=== PATIENT | female | born 1970 ===

== ENCOUNTER 2022-07-13 07:45 | Outpatient (REF) | payer SELFPAY ==
--- NOTE | ~2022-07-13 | XR_ITS ---
EXAMINATION: XR HIP, RIGHT CLINICAL INFORMATION: Pain. COMPARISON: None TECHNIQUE: AP and frog-leg lateral views of the right hip are submitted, together with a frontal view of the pelvis. FINDINGS: Bony alignment and mineralization are normal. There is moderately severe narrowing of the right acetabular joint space, with subchondral sclerosis of the right acetabular roof. The left hip shows no unusual degenerative change. The femoral heads appear smooth. The sacroiliac joints are symmetric and unremarkable. The pubic symphysis is intact. No fracture or dislocation is seen. Question sacralization of the L5 transverse processes, in particular on the right. No foreign body is noted. XR/XR hip RT w PEL1V IMPRESSION: There is moderately severe osteoarthritic change of the right hip. No fracture or dislocation is seen.
== END 2022-07-13 07:46 | disposition home or self-care (01) ==
LOC: HO.HOSX 07:45
PROVIDERS: Visit Provider Physician Assistant
DX: M16.11 Unilateral primary osteoarthritis, right hip (principal); Z79.899 Other long term (current) drug therapy
CPT/HCPCS: 73502

== ENCOUNTER 2022-10-04 08:00 | Outpatient (RCR) | payer OTHER, SELFPAY | END 2023-07-16 12:11 | disposition home or self-care (01) | LOC: HO.PTWFD 08:00 | PROVIDERS: PCP Internal Medicine; Visit Provider Physician Assistant | DX: M16.11 Unilateral primary osteoarthritis, right hip (principal) | CPT/HCPCS: 97110; 97116; 97140; 97162; 97535 ==

== ENCOUNTER 2023-01-31 13:38 | Outpatient (AMB) | payer OTHER, SELFPAY ==
--- NOTE | 2023-01-31 13:50 | MHC.OFFVIS ---
Intake Intake Visit Reasons: OV- Right Hip pain w/ xrays Intake Note: Leigh is a 52 year old women who presents today for a follow up of her right hip with complaints hip pain. Patient reports that she was doing physical therapy and felt some mild relief until she stopped attending. Once she stopped attending she felt and intermittent increase in her pain. Has seen a chiropractor but has not seen any significant changes. Increased pain walking up hills. Allergies morphine Allergy (Verified 01/31/23 13:53) itchy HPI OV- Right Hip pain w/ xrays HPI Details Leigh Teran is a 52-year-old female who presented today to the office for a follow-up of right hip pain with an x-ray result. The patient is post-bilateral mastectomy, and later she developed pain in the back, so she visited a chiropractor. The chiropractor pulled her leg in such a way that she developed hip pain, which resolved on its own. She went to [place] for vacation, and while surfing, she was unable to rotate on the surf board. Later, she went hiking and exerted herself, and the pain went away on its own. She reports hip pain that radiates to her inguinal region. She currently describes her pain as intermittent in nature, coming and going with certain activities. The patient reports pain when climbing up and down hills for a few days. She tried physical therapy and massages in the past with minimal benefits. 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 She has had previous caesarean sections. 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 07/13/22: XR HIP, RIGHT FINDINGS: Bony alignment and mineralization are normal. There is moderately severe narrowing of the right acetabular joint space, with subchondral sclerosis of the right acetabular roof. The left hip shows no unusual degenerative change. The femoral heads appear smooth. The sacroiliac joints are symmetric and unremarkable. The pubic symphysis is intact. No fracture or dislocation is seen. Question sacralization of the L5 transverse processes, in particular on the right. No foreign body is noted. IMPRESSION: There is moderately severe osteoarthritic change of the right hip. No fracture or dislocation is seen. Assessment & Plan Assessment & Plan (1) Osteoarthritis of right hip: Code(s): M16.11 - Unilateral primary osteoarthritis, right hip Plan: This is a healthy and active 52 yo F iwth right hip OA 2/2 mild dysplasia. We discussed her diagnosis and treatment option including strengthening, injections and arthroplasty. She will likely need arthroplasty but is not ready for such measures at this time. She can return as needed. Plan Scribed for Dr. Terrance Soni by Dwayne Sin, medical sales representative, on 01/31/2023. I, Dr. Terrance Soni, have personally reviewed and agree with the information entered by the scribe. Coding Level of Care Code New Pt Level 4 (52981) Diagnoses Osteoarthritis of right hip M16.11
== END 2023-01-31 14:18 | disposition home or self-care (01) ==
PROVIDERS: PCP Internal Medicine; Visit Provider Orthopaedic Surgery
DX: M16.11 Unilateral primary osteoarthritis, right hip (principal)
CPT/HCPCS: 99214

== ENCOUNTER → 2023-01-31 13:38 | Outpatient (BNVA) | payer OTHER, SELFPAY | PROVIDERS: PCP Internal Medicine; Visit Provider Orthopaedic Surgery ==

== ENCOUNTER 2023-02-04 12:26 | Outpatient (REF) | payer OTHER, SELFPAY | END 2023-02-04 12:27 | disposition home or self-care (01) | LOC: HO.HOSX 12:26 | PROVIDERS: Visit Provider Orthopaedic Surgery | DX: Z13.89 Encounter for screening for other disorder (principal) ==

== ENCOUNTER 2023-10-11 11:09 | Outpatient (AMB) | payer OTHER, SELFPAY ==
--- NOTE | 2023-10-11 09:50 | A.OFFPC_ITS ---
Vital Signs 10/11/23 11:19 Height 5 ft 2 in Weight 138 lb 6 oz BMI 25.3 BP 98/76 Blood Pressure Location Lt brachial Position Sitting Respiration 14 Pulse 80 Pulse Source Pulse Oximeter Temp 98.5 F Temp Source Oral Pulse Oximetry (%) 99 Oxygen Delivery Method Room Air Intake Visit Reasons: est care Intake Note: New patient visit. Possible fluid in left ear. Account Service Associate Required: No Allergies morphine Allergy (Verified 10/11/23 11:23) itchy Medication List - Last Reviewed 10/11/23 by Kaylynn Chapin CMA liothyronine 10 mcg PO DAILY thyroid (pork) (Quinter Thyroid) 30 mg PO DAILY thyroid (pork) (Quinter Thyroid) 15 mg PO DAILY Dental Screening Dental Screen Date: 10/11/23 Did you have a dental visit in the last 12 months?: No Did you have a dental problem in the last 6 months where you did not have access to dental care?: No Was dental information given to patient?: No (Patient will look for Dentist.) HPI HPI Comments History of Present Illness Details The patient is a 52-year-old female with a past medical history of low back pain, right hip pain, b/l mastectomy, hypothyroid presenting to reestablish care The patient is post-bilateral mastectomy 03/2021. Needs MRI 2025. She has atypical cells. She had [address] Kee (onc). MSK: Low back pain, hip pain. Has seen chiro for her back. Saw ortho for hip mod-severe arthritis. Doing well History of thyroid u/s. didnt hear results. Taken at [facility]. She will provide Colonoscopy 12/2022-GI Dr Manzanares [facility] Medical History (Updated 10/11/23 @ 13:26 by Bonnie Menjivar MD) Hypothyroidism Surgical History (Updated 10/11/23 @ 11:34 by Bonnie Menjivar MD) H/O bilateral mastectomy Hx of colonoscopy Hx of adenoidectomy Hx of wisdom tooth extraction Hx of section Hx of mastectomy Family History (Updated 10/11/23 @ 11:23 by Kaylynn Chapin CMA) Sister Substance use Alcoholism Social History Housing: House Patient Tobacco Use Status: Former Tobacco user Tobacco use type: Cigarette e-Cigarette/Vaping Use: Never Used service: No Current occupational status: other 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 1. Little interest or pleasure in doing things: not at all 2. Feeling down, depressed, or hopeless: not at all 3. Trouble falling or staying asleep, or sleeping too much: not at all 4. Feeling tired or having little energy: not at all 5. Poor appetite or overeating: not at all 6. Feeling bad about yourself - or that you are a failure or have let yourself or your family down: not at all 7. Trouble concentrating on things, such as reading the newspaper or watching television: not at all 8. Moving or speaking so slowly that other people could have noticed. Or the opposite - being so fidgety or restless that you have been moving around a lot more than usual: not at all 9. Thoughts that you would be better off or of hurting yourself in some way: not at all Total score: 0 Depression Screening Interpretation: Negative (neg) Depression Screening Done: Yes 22966 - PHQ-9 Billing: Yes Source: Developed by Drs. Huan Espinosa, Sumi Winchester, Charanjit Bunn and colleagues, with an educational jareth from [employer]. Thrive Questionnaire Date Thrive assessed: 10/11/23 I am a: Patient What is your living situation today?: I have a steady place to live Within the past 12 months, did the food you bought not last and you didn't have the money to get more?: Never true Within the past 12 months, did you worry whether your food would run out before you got money to buy more?: Never true Do you have trouble paying for medicines?: No Do you have trouble getting transportation to medical appointments?: No Do you have trouble paying your heating and electricity bill?: No Do you have trouble taking care of your child, family member or friend?: No Do you have trouble with day-to-day activities such as bathing, preparing meals, shopping, managing finances, etc.?: No Are you currently unemployed and looking for a job?: No Are you interested in more education?: No Please select the resources that you would like help with: None Currently or been in a relationship where the following occur: no concerns reported THRIVE Score: 0 AUDIT C Alcohol Use Questionnaire (AUDIT-C) 1. How often do you have a drink containing alcohol?: Never 3. How often do you have six or more drinks on one occasion?: Never Total Score: 0 BEST-7 AMB Questionnaire BEST-7 Date BEST - 7 assessed: 10/11/23 Feeling nervous, anxious, or on edge: 0 = Not at all Not being able to stop or control worryin = Not at all Worrying too much about different things: 0 = Not at all Trouble relaxin = Not at all Being so restless that it is hard to sit still: 0 = Not at all Becoming easily annoyed or irritable: 0 = Not at all Feeling afraid as if something awful might happen: 0 = Not at all Total BEST-7 score (0-4 normal; 5-9 mild; 10-14 moderate; 15-21 severe): 0 Source: Developed by Drs. Huan Espinosa, Sumi Winchester, Charanjit Bunn and colleagues, with an educational jareth from [employer]. BEST-7 Assessment Billing BEST-7 Assessment Tool: BEST-7 Assessment 45906 Review of Systems Const Details: ROS CONSTITUTIONAL: Denies weight loss, fever and chills. HEENT: Denies changes in vision and hearing. RESPIRATORY: Denies SOB and cough. CV: Denies palpitations and CP GI: Denies abdominal pain, nausea, vomiting and diarrhea. : Denies dysuria and urinary frequency. MSK: Denies new myalgia and joint pain. SKIN: Denies rash and pruritus. NEUROLOGICAL: Denies headache PSYCHIATRIC: Denies recent changes in mood. Physical exam (Primary Care) Vital Signs: Last Vital Signs Temp 98.5 F 10/11/23 11:19 Pulse 80 10/11/23 11:19 Resp 14 10/11/23 11:19 BP 98/76 10/11/23 11:19 Pulse Ox 99 10/11/23 11:19 Oxygen Delivery Method Room Air 10/11/23 11:19 PHYSICAL EXAM: GENERAL: Alert and oriented x 3. NAD EYES: EOMI. Anicteric. HENT: Moist mucous membranes. No scleral icterus. No cervical lymphadenopathy. LUNGS: Clear to auscultation bilaterally. CARDIOVASCULAR: Regular rate and rhythm. No murmur. No JVD. ABDOMEN: Soft, non-tender +bs EXTREMITIES: No edema. Non-tender. SKIN: No rashes or lesions. Warm. NEUROLOGIC: No focal neurological deficits. CN II-XII grossly intact PSYCHIATRIC: Cooperative. Appropriate mood and affect BMI result Body Mass Index 25.3 Tobacco/Smoking Status: Tobacco use Status Patient Tobacco Use Status Former Tobacco user 10/11/23 09:51 Tobacco use type Cigarette 10/11/23 11:32 e-Cigarette/Vaping Use Never Used 10/11/23 11:32 PHQ-9: PHQ-9 Score PHQ-9: Total score 0 10/11/23 12:02 Depression Screening Interpretation: Negative (neg) Thrive Assessment: Date of Thrive Assessment Date Thrive assessed 10/11/23 10/11/23 12:02 Currently or been in a relationship where the following occur: no concerns reported Assessment and Plan Assessment & Plan (1) Low back pain: Comment: stable. continue f/up chiro Code(s): M54.50 - Low back pain, unspecified Qualifiers: Back pain laterality: midline Chronicity: chronic Sciatica presence: without sciatica Qualified Code(s): M54.50 - Low back pain, unspecified; G89.29 - Other chronic pain (2) Osteoarthritis of right hip: Code(s): M16.11 - Unilateral primary osteoarthritis, right hip Qualifiers: Osteoarthritis type: primary Qualified Code(s): M16.11 - Unilateral primary osteoarthritis, right hip (3) Hypothyroidism: Comment: follows with integrative medicine. continue testing, current dosing Code(s): E03.9 - Hypothyroidism, unspecified Qualifiers: Hypothyroidism type: unspecified Qualified Code(s): E03.9 - Hypothyroidism, unspecified (4) Hx of colonoscopy: Comment: 12/2022 Code(s): Z98.890 - Other specified postprocedural states Orders: Orders Complete Blood Count Auto Diff 6 Months E03.9 - Hypothyroidism, unspecified, Z13.0 - Encounter for screening for diseases of the blood and blood-forming organs and certain disorders involving the immune mechanism, Z13.220 - Encounter for screening for lipoid disorders, Z13.228 - Encounter for screening for other metabolic disorders, Z98.890 - Other specified postprocedural states Comprehensive Met. Panel 6 Months E03.9 - Hypothyroidism, unspecified, Z13.0 - Encounter for screening for diseases of the blood and blood-forming organs and certain disorders involving the immune mechanism, Z13.220 - Encounter for screening for lipoid disorders, Z13.228 - Encounter for screening for other metabolic disorders, Z98.890 - Other specified postprocedural states Lipid Panel 6 Months E03.9 - Hypothyroidism, unspecified, Z13.0 - Encounter for screening for diseases of the blood and blood-forming organs and certain disorders involving the immune mechanism, Z13.220 - Encounter for screening for lipoid disorders, Z13.228 - Encounter for screening for other metabolic disorders, Z98.890 - Other specified postprocedural states Coding Level of Care Code Est Pt Level 5 (13490) Complex EM visit Add On G2211 Diagnoses Chronic midline low back pain without sciatica M54.50; G89.29 Back pain laterality: midline Chronicity: chronic Sciatica presence: without sciatica Primary osteoarthritis of right hip M16.11 Osteoarthritis type: primary Hypothyroidism, unspecified type E03.9 Hypothyroidism type: unspecified Hx of colonoscopy Z98.890 Additional Codes BEST-7 Assessment Billing - BEST-7 Assessment Tool: BEST-7 Assessment 30096 ([id number]) Time Spent (min) 47
[2023-10-11 11:19] VITALS: BP 98/76; PULSE 80; RESP 14; TEMP 36.9; O2SAT 99; BMI 25.3
== END 2023-10-11 11:49 | disposition home or self-care (01) ==
PROVIDERS: PCP Internal Medicine; Visit Provider Internal Medicine
DX: M54.50 Low back pain, unspecified (principal); G89.29 Other chronic pain; M16.11 Unilateral primary osteoarthritis, right hip; E03.9 Hypothyroidism, unspecified; Z98.890 Other specified postprocedural states
CPT/HCPCS: 99215; G2211

== ENCOUNTER 2024-04-13 09:03 | Outpatient (REF) | payer OTHER, SELFPAY ==
[2024-04-13 09:35] LABS: MANUAL DIFF FLAG NO
[2024-04-13 10:09] LABS: Basophils Percent Auto 0.8 % (0-2); Eosinophils Absolute Auto 0.2 X10*3/uL (0.0-0.4); Hematocrit 44.9 % (37.0-47.0); Hemoglobin 14.7 g/dl (12.0-16.0); Imm Gran Abs Auto 0.01 X10*3/uL (0.00-0.03); Imm Gran Pct Auto 0.2 % (0.0-0.4); Lymphocytes Absolute Auto 1.6 X10*3/uL (1.2-4.9); Lymphocytes Percent Auto 32.5 % (20-40); Mean Corpuscular HGB Conc 32.7 g/dl (31.0-35.0); Mean Corpuscular Hemoglobin 27.1 pg (27.0-33.0); Mean Corpuscular Volume 82.7 fL (80.0-98.0); Mean Platelet Volume 10.5 fL (9.4-12.3); Monocytes Absolute Auto 0.3 X10*3/uL (0.1-1.2); Monocytes Percent Auto 5.7 % (2-11); Neutrophils Absolute Auto 2.9 x10*3/uL (2.0-8.3); Neutrophils Percent Auto 57.8 % (45-73); Platelet Count 234 X10*3/uL (160-400); Red Blood Count 5.43 X10*6/uL (4.20-5.50); Red Cell Distribution Width 12.8 % (11.0-16.0); White Blood Count 5.1 X10*3/uL (4.8-10.8)
[2024-04-13 11:00] LABS: Alanine Aminotransferase 27 U/L (0-31); Albumin Level 4.5 g/dL (3.5-5.0); Alkaline Phosphatase 64 U/L (39-117); Anion Gap 10 (12-20); Aspartate Amino Transferase 14 U/L (5-31); Bilirubin Total 0.7 mg/dL (0.0-1.0); Blood Urea Nitrogen 15 mg/dL (9-16); Calcium 9.9 mg/dL (8.4-10.2); Carbon Dioxide 27 mmol/L (22-29); Chloride 109 mmol/L (96-108); Cholesterol 158 mg/dL (<200); Estimated Glomerular Filt Rate > 60; Glucose Random 95 mg/dL (60-115); HDL Cholesterol 64 mg/dL (>40); Iron 144 mcg/dL (30-160); LDL Cholesterol Calculated 87 mg/dL (<100); Percent Iron Saturation 48 % (15-50); Potassium 4.7 mmol/L (3.3-5.1); Sodium 141 mmol/L (135-145); Total Iron Binding Capacity 302 mcg/dL (228-428); Total Protein 7.2 g/dL (6.5-8.0); Triglycerides 35 mg/dL (<150); Unsaturated Iron Binding 158 ug/dL
[2024-04-13 11:04] LABS: Ferritin 22 ng/mL (10-250)
[2024-04-13 11:09] LABS: Vitamin B12 682 pg/mL (200-900)
[2024-04-15 05:13] LABS: Ceruloplasmin 27 mg/dL (14-48)
[2024-04-16 18:04] LABS: Copper, serum 106 mcg/dL (70-175); Magnesium, RBC 5.1 mg/dL (4.0-6.4); Selenium, Serum 97 mcg/L (63-160)
[2024-04-17 03:09] LABS: Zinc 82 mcg/dL (60-130)
[2024-04-18 15:35] LABS: Vitamin D 25-OH, D2 <4 ng/mL; Vitamin D 25-OH, D3 30 ng/mL; Vitamin D 25-OH, Total 30 ng/mL (30-100)
[2024-04-23 05:33] LABS: Copper RBC 0.77 mg/L (0.53-0.91)
== END 2024-04-13 09:04 | disposition home or self-care (01) ==
LOC: HO.LAB 09:03
PROVIDERS: PCP Internal Medicine; Visit Provider Internal Medicine
DX: E03.9 Hypothyroidism, unspecified (principal); Z13.0 Encounter for screening for diseases of the blood and blood-forming organs and certain disorders involving the immune mechanism; Z13.228 Encounter for screening for other metabolic disorders; Z98.890 Other specified postprocedural states; Z13.220 Encounter for screening for lipoid disorders
CPT/HCPCS: 36415; 80053; 80061; 82306; 82390; 82525; 82607; 82728; 83540; 83735; 84255; 84630; 85025

== ENCOUNTER 2024-04-17 15:57 | Outpatient (AMB) | payer OTHER, SELFPAY ==
--- NOTE | 2024-04-17 16:02 | MHC.PC.OV ---
Vital Signs 04/17/24 16:07 Height 5 ft 2 in Weight 137 lb 8 oz BMI 25.1 BP 110/72 Blood Pressure Location Lt brachial Position Sitting Pulse 88 Pulse Source Pulse Oximeter Pulse Oximetry (%) 98 Oxygen Delivery Method Room Air Intake Visit Reasons: CPE Intake Note: Physical Roll Mill Operator Required: No Allergies morphine Allergy (Unknown, Verified 04/17/24 16:07) Unknown Tobacco use date assessed: 04/17/24 Dental Screening Dental Screen Date: 10/11/23 HPI HPI Comments History of Present Illness Details The patient is a 52-year-old female with a past medical history of low back pain, right hip pain, b/l mastectomy, hypothyroid presenting for physical exam Heme/onc: The patient is post-bilateral mastectomy 03/2021. Needs MRI 2025. She has atypical cells. She had [address] Kee (onc). Hit 3 year alejandro. MSK: Low back pain, hip pain. Has seen chiro for her back. Saw ortho for hip mod-severe arthritis. Doing well. Gets deep tissue massage every few weeks. History of thyroid u/s. Will repeat Colonoscopy 12/2022[facility] Dr Leighton ESPINOZA CONSTITUTIONAL: Denies weight loss, fever and chills. HEENT: Denies changes in vision and hearing. RESPIRATORY: Denies SOB and cough. CV: Denies palpitations and CP GI: Denies abdominal pain, nausea, vomiting and diarrhea. : Denies dysuria and urinary frequency. MSK: Denies new myalgia and joint pain. SKIN: Denies rash and pruritus. NEUROLOGICAL: Denies headache PSYCHIATRIC: Denies recent changes in mood. PHYSICAL EXAM: GENERAL: Alert and oriented x 3. NAD EYES: EOMI. Anicteric. HENT: Moist mucous membranes. No scleral icterus. No cervical lymphadenopathy. LUNGS: Clear to auscultation bilaterally. CARDIOVASCULAR: Regular rate and rhythm. No murmur. No JVD. ABDOMEN: Soft, non-tender +bs EXTREMITIES: No edema. Non-tender. SKIN: No rashes or lesions. Warm. NEUROLOGIC: No focal neurological deficits. CN II-XII grossly intact PSYCHIATRIC: Cooperative. Appropriate mood and affect [facility] Medical History (Updated 05/04/24 @ 10:12 by Bonnie Menjivar MD) Hypothyroidism Surgical History (Updated 04/06/24 @ 08:26 by Kenzie Frausto) H/O bilateral mastectomy Hx of colonoscopy Hx of adenoidectomy Hx of wisdom tooth extraction Hx of section Hx of mastectomy Family History (System 04/06/24 @ 08:26 by Kenzie Frausto) Sister Substance use Alcoholism Social History (System 04/06/24 @ 08:26 by Kenzie Frausto) Housing: House Patient Tobacco Use Status: Former Tobacco user Tobacco use type: Cigarette e-Cigarette/Vaping Use: Never Used service: No Current occupational status: other 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 Huan Espinosa, Sumi Winchester, Charanjit Bunn and colleagues, with an educational jareth from [employer]. Physical exam (Primary Care) Vital Signs: Last Vital Signs Pulse 88 04/17/24 16:07 BP 110/72 04/17/24 16:07 Pulse Ox 98 04/17/24 16:07 Oxygen Delivery Method Room Air 04/17/24 16:07 BMI result Body Mass Index 25.1 Tobacco/Smoking Status: Tobacco use Status Tobacco use date assessed 04/17/24 04/17/24 16:13 Patient Tobacco Use Status Former Tobacco user 04/17/24 16:05 Tobacco use type Cigarette 04/17/24 16:05 e-Cigarette/Vaping Use Never Used 04/17/24 16:05 Thrive Assessment: Date of Thrive Assessment Date Thrive assessed 10/11/23 04/17/24 16:05 Coding Level of Care Code Est Pt Level 4 (90338) Est Pt Prev Care 40-64y(58435) Diagnoses Physical exam Z00.00 Hypothyroidism, unspecified type E03.9 Hypothyroidism type: unspecified Chronic midline low back pain without sciatica M54.50; G89.29 Back pain laterality: midline Chronicity: chronic Sciatica presence: without sciatica Assessment & Plan Assessment & Plan (1) Physical exam: Code(s): Z00.00 - Encounter for general adult medical examination without abnormal findings Category: Medical Plan: Preventive measures for age discussed (2) Hypothyroidism: Code(s): E03.9 - Hypothyroidism, unspecified Category: Medical Qualifiers: Hypothyroidism type: unspecified Qualified Code(s): E03.9 - Hypothyroidism, unspecified Plan: Follows with integrative medicine Feeling well Will repeat u/s (3) Low back pain: Code(s): M54.50 - Low back pain, unspecified Category: Medical Qualifiers: Back pain laterality: midline Chronicity: chronic Sciatica presence: without sciatica Qualified Code(s): M54.50 - Low back pain, unspecified; G89.29 - Other chronic pain Plan: stable continue follow up with chiro Orders: Orders US thyroid 04/17/24 R59.0 - Localized enlarged lymph nodes
[2024-04-17 16:07] VITALS: BP 110/72; PULSE 88; O2SAT 98; BMI 25.1
== END 2024-04-17 16:34 | disposition home or self-care (01) ==
LOC: HO.HMCFM 15:58
PROVIDERS: PCP Internal Medicine; Visit Provider Internal Medicine
DX: Z00.00 Encounter for general adult medical examination without abnormal findings (principal); E03.9 Hypothyroidism, unspecified; M54.50 Low back pain, unspecified; G89.29 Other chronic pain

== ENCOUNTER → 2024-04-17 15:57 | Outpatient (BNVA) | payer OTHER, SELFPAY | PROVIDERS: PCP Internal Medicine; Visit Provider Internal Medicine ==

== ENCOUNTER 2024-04-20 08:31 | Outpatient (REF) | payer OTHER, SELFPAY ==
[2024-04-20 12:59] LABS: Thyroid Stimulating Hormone 0.13 uIU/mL (0.32-4.0)
[2024-04-21 16:09] LABS: Triiodothyronine T3 Free 3.1 pg/mL (2.3-4.2)
== END 2024-04-20 08:32 | disposition home or self-care (01) ==
LOC: HO.WFDLDS 08:31
PROVIDERS: Visit Provider Nurse Practitioner Family
DX: E03.8 Other specified hypothyroidism (principal)
CPT/HCPCS: 36415; 84439; 84443; 84481

== ENCOUNTER 2024-04-30 10:32 | Outpatient (REF) | payer OTHER, SELFPAY | END 2024-04-30 10:33 | disposition home or self-care (01) | LOC: HO.US 10:32 | PROVIDERS: PCP Internal Medicine; Visit Provider Internal Medicine | DX: R59.0 Localized enlarged lymph nodes (principal) | CPT/HCPCS: 76536 ==

== ENCOUNTER 2024-05-22 07:58 | Outpatient (REF) | payer OTHER, SELFPAY ==
--- OUTSIDE RECORDS SUMMARY | 2024-05-27 05:08 | XMS_ITS | Continuity of Care Document ---
Author Organization [facility] Address [address] [place] [address] Phone Care Team Providers Care Solution Developer Name Role Phone Unavailable Unavailable Unavailable Advance Directives Directive Yes / No Effective Date File Name No Information Encounters Encounter Description Practice Location Reason(s) For Visit Diagnoses Date Provider Providers Copied on Encounter [facility], [address], [place], [place], [id number], [place] tel:[phone] [place] [facility] No Information Feb-200 9 No Information Family History Family Member Type Diagnosis Age At Onset No Information Payers Payer name Insurance type Covered constitution party ID Authoriza tion(s) No Information Social History Type Description Quantity Date Captured Comments Sex Female Smoking Status No Information Chief Complaint And Reason For Visit No Information History Of Present Illness Encounter Date Complaint History Of Prese nt Illness No Information Instructions Date Instruction Additional Infor mation No Information Assessments Type Assessment Date No Information
== END 2024-05-22 07:59 | disposition home or self-care (01) ==
LOC: HO.WFDLDS 07:58
PROVIDERS: Visit Provider Nurse Practitioner Family
DX: Z13.89 Encounter for screening for other disorder (principal)

== ENCOUNTER 2024-05-22 08:52 | Outpatient (RCR) | payer OTHER, SELFPAY ==
[2024-04-06 07:36] VITALS: BP 120/70; PULSE 86; O2SAT 98
--- NOTE | 2024-04-06 12:10 | MHC.PT.EP ---
[facility] Office [place] Office [place] Office [address] Cheyenne Allen [address] [phone] F: [phone] F: [phone] F: [phone] F: [phone] Physical Therapy Plan of Care Date of Evaluation: 04/06/24 Date of Surgery: 03/2021 Diagnosis: Unilateral primary OA right hip, referred to PT by Dr. Bonnie Menjivar date of order 03/18/24 Assessment: Pt is a RHD 52 y/o female s/p bilateral mastectomy, HX breast CA 03/2021, hypothyroidism, referred to PT from her PCP Dr. Menjivar for treatment of unilateral primary OA R hip. Pt expressing worsening R hip pain in recent months. Pt intolerance for exercise activity including walking up hills, currently not doing any formal HEP program and states she does not feel strong. Pt seen by Dr. Soni for evaluation in 02/06, had xrays at that time IMPRESSION: There is moderately severe osteoarthritic change of the right hip. No fracture or dislocation is seen. Pt has had past PT [facility] at [facility] 08/09[facility]/10/07 and improved at that time. Since that time, pt has stopped doing formal exercise program and notes decline in strength, increased pain in her R hip. Pt noted to exhibit antalgic gait today with use of no AD. Pt would benefit from new round of formal PT to address pain, mobility, and current sx. Should sx persist following completion of PT patient may benefit from following up with [facility] orthopedics to reevaluate hip status for potential injection>discuss MARIE options. Frequency and Duration: The patient will be seen 1-2x/week for a lumbar/hip stabilization program Short Term Goals: 1. Initiate self care management/HEP program for lower back/ R hip pain. 2. Reduce R hip pain by 25% during ADLS/IADLS. 3. Improve strength of hip abductors 4+/5. (IR 4-/5 compensation of R hip flexor noted). 4. Initiate strength core stab program. Parachute Marker Goals: 1. I HEP for lumbar/hip stabilization program. 2. Strengthen R hip abductors R 5/5. 3. Educate patient on activities which are not recommended Ie: running and load for R hip. 4. Demonstrate functional squat with fair symmetry with good dynamic balance. 5. Strength hip ext 55 R hip. Treatment Plan: Modalities to reduce pain, spasms and effusion. Manual therapy to restore motion and function. Therapeutic exercise to improve strength and flexibility. Neuromuscular re-education for posture and balance. Therapeutic activities to return to functional activities of daily living. Electronically signed by: Pearl Smith PT, DPT Please sign and return to therapist. Thank you for your referral.
== END 2024-07-10 09:00 | disposition home or self-care (01) ==
LOC: HO.PTWFD 08:52
PROVIDERS: PCP Internal Medicine; Visit Provider Internal Medicine
DX: M16.11 Unilateral primary osteoarthritis, right hip (principal)
CPT/HCPCS: 97110; 97140; 97162

== ENCOUNTER → 2024-07-24 13:50 | Outpatient (BNV) | payer OTHER, SELFPAY | PROVIDERS: PCP Internal Medicine; Referring Provider Internal Medicine; Visit Provider Internal Medicine Medical Oncology | DX: R59.0 Localized enlarged lymph nodes (principal); J35.1 Hypertrophy of tonsils | CPT/HCPCS: 99214 ==

== ENCOUNTER 2024-08-13 13:11 | Outpatient (REF) | payer OTHER, SELFPAY ==
--- NOTE | ~2024-08-13 | CT_ITS ---
EXAMINATION: CT SOFT TISSUE NECK WITH CONTRAST CLINICAL INFORMATION: Cervical lymphadenopathy. COMPARISON: Correlation made with thyroid ultrasound 04/30/2024. TECHNIQUE: Following the intravenous administration of 100 mL of Omnipaque 350 intravenous contrast, helical imaging was performed in the axial plane with generation of coronal and sagittal reformatted images. This CT examination was performed using dose optimization techniques as appropriate, variously including the following: *Automated exposure control *Adjustment of mA and/or kV according to patient size (this includes techniques or standardized protocols for targeted exams where dose is matched to indication/reason for exam; i.e. extremities or head) *Use of iterative reconstruction technique FINDINGS: Lymph Nodes: -There are no enlarged lymph nodes by size criteria. There are bilateral anterior and posterior cervical chain subcentimeter normal morphology nodes, most consistent with reactive etiology. No pathologic nodes are identified. Carotid Sheath Structures: -Normal. Salivary Glands: -Normal without focal lesion. Mildly lobulated submandibular glands, nonspecific. Tongue Base/Floor of Mouth: -Normal. Mucosal Space: -Normal without definite focal lesion. -Mild hypertrophy of the tonsillar pillar soft tissues, nonspecific and likely reactive. -The oropharynx and hypopharynx otherwise image normally. Normal epiglottis and aryepiglottic folds.. Visceral Space: -Thyroid gland: Normal CT appearance. -Normal-appearing larynx and true vocal cords. Retropharangeal Space: -Normal. Parapharyngeal Fat Planes: -Normal/undisturbed. Facilities Maintenance Worker Spaces: -Normal. Imaged Intracranial Contents: -No mass effect, edema, or abnormal enhancement. Cortical and dural venous sinuses are patent. The skull base is normal. Globes and Orbits: -Normal. Paranasal Sinuses/Mastoids/Tympanic Spaces: -Normally aerated bilaterally. -Somewhat S-shaped anterior nasal septum with right deviation. Lung Apices and Superior Mediastinal Structures: -Imaged lung apices are clear. -Small amount of triangular soft tissue anterior mediastinum is consistent with thymic remnant. Bony Structures: -No suspicious bone lesions. No fractures. -Normal cervical spine without significant degenerative change or central canal narrowing. -Moderate left and mild right degenerative TM joint changes. CT/CT soft tissue neck w IV con IMPRESSION: 1. There are no enlarged/abnormal cervical lymph nodes by morphology or size criteria. There are reactive centimeter short axis lymph nodes in the anterior and posterior cervical chains. 2. Mild hypertrophy of tonsillar pillar soft tissues, most consistent with reactive etiology. 3. Ancillary findings as discussed in the body of report. Electronically signed by: Ori Rey MD 08/13/2024 02:08 PM [facility]
[2024-08-13] MEDS: iohexoL 350 MG/ML 100 ML INFUS..BTL IV (13:42)
--- OUTSIDE RECORDS SUMMARY | 2024-08-13 15:43 | XMS_ITS | Continuity of Care Document ---
Author Organization [facility] Address [address] [place] [address] Phone Care Team Providers Care Esl Tutor Name Role Phone Unavailable Unavailable Unavailable Advance Directives Directive Yes / No Effective Date File Name No Information Encounters Encounter Description Practice Location Reason(s) For Visit Diagnoses Date Provider Providers Copied on Encounter [facility], [address], [place], [place], [id number], [place] tel:[phone] [place] [facility] No Information Feb-200 9 No Information Family History Family Member Type Diagnosis Age At Onset No Information Payers Payer name Insurance type Covered libertarian ID Authoriza tion(s) No Information Social History Type Description Quantity Date Captured Comments Sex Female Smoking Status No Information Chief Complaint And Reason For Visit No Information History Of Present Illness Encounter Date Complaint History Of Prese nt Illness No Information Instructions Date Instruction Additional Infor mation No Information Assessments Type Assessment Date No Information
== END 2024-08-13 13:12 | disposition home or self-care (01) ==
LOC: HO.CT 13:11
PROVIDERS: PCP Internal Medicine; Visit Provider Internal Medicine Medical Oncology
DX: R59.0 Localized enlarged lymph nodes (principal)
CPT/HCPCS: 70491; Q9967

== ENCOUNTER → 2024-08-13 13:14 | Outpatient (BNV) | payer OTHER, SELFPAY | PROVIDERS: PCP Internal Medicine; Visit Provider Radiology Diagnostic Radiology | DX: R59.0 Localized enlarged lymph nodes (principal); J35.1 Hypertrophy of tonsils | CPT/HCPCS: 70491 ==

== ENCOUNTER 2025-04-19 08:28 | Outpatient (AMB) | payer OTHER, SELFPAY ==
--- NOTE | 2025-04-19 08:37 | MHC.PC.OV ---
Vital Signs 04/19/25 08:42 Height 5 ft 2 in Weight 145 lb 2 oz BMI 26.5 BP 104/74 Blood Pressure Location Rt brachial Position Sitting Respiration 12 Pulse 82 Pulse Source Pulse Oximeter Temp 98.1 F Temp Source Oral Pulse Oximetry (%) 98 Oxygen Delivery Method Room Air Intake Visit Reasons: cpe Intake Note: Physical Piggyback Clerk Required: No Allergies morphine Allergy (Unknown, Verified 04/19/25 08:39) Unknown Tobacco use date assessed: 04/19/25 Dental Screening Dental Screen Date: 10/11/23 Did you have a dental visit in the last 12 months?: No Did you have a dental problem in the last 6 months where you did not have access to dental care?: No Was dental information given to patient?: Patient declined HPI HPI Comments History of Present Illness Details The patient is a 54-year-old female with a past medical history of low back pain, right hip pain, b/l mastectomy, hypothyroid presenting for physical exam Heme/onc: The patient is post-bilateral mastectomy 03/2021. Needs MRI 2025. She has atypical cells. She had [address] Kee (onc). Hit 3 year alejandro. Follows with Dr Hill for cervical LN. Recommended ENT evaluation Irena's thyroiditis: Follows with Cassandra Munson at the [facility] in [place]. Following with [facility] in [place]. She is taking liothyronine 5 mcg and [place] thyroid. She underwent an ultrasound of the thyroid. MSK: Low back pain, hip pain. Has seen chiro for her back. Saw ortho for hip mod-severe arthritis. Doing well. s/p hip replacement in 01/2025 Colonoscopy 12/2022-[facility] Dr Manzanares Mammo: Follows with [facility]. Needs MRI 2025 ROS see HPI PHYSICAL EXAM: GENERAL: Alert and oriented x 3. NAD EYES: EOMI. Anicteric. HENT: Moist mucous membranes. Thyroid mild enlargement, no large cervical nodes LUNGS: Clear to auscultation bilaterally. CARDIOVASCULAR: Regular rate and rhythm. No murmur. No JVD. ABDOMEN: Soft, non-tender +bs EXTREMITIES: No edema. Non-tender. SKIN: scattered nevi NEUROLOGIC: No focal neurological deficits. CN II-XII grossly intact PSYCHIATRIC: Cooperative. Appropriate mood and affect [facility] Medical History (Updated 04/19/25 @ 09:06 by Bonnie Menjivar MD) Hypothyroidism Surgical History History of hip replacement Status post cervical polyp removal H/O lumpectomy H/O bilateral mastectomy Hx of colonoscopy Hx of adenoidectomy Hx of wisdom tooth extraction Hx of section Hx of mastectomy Family History Sister Substance use Alcoholism Social History (Updated 04/19/25 @ 08:45 by Kaylynn Chapin CMA) Household Members: Spouse and Children Housing: House Are you a primary pharmacy customer care specialist to a significant other at home: Yes Do you presently have visiting nurse or other home services: No Alcohol intake: current Patient Tobacco Use Status: Former Tobacco user Tobacco use type: Cigarette e-Cigarette/Vaping Use: Never Used service: No Current occupational status: other 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 1. Little interest or pleasure in doing things: not at all 2. Feeling down, depressed, or hopeless: not at all 3. Trouble falling or staying asleep, or sleeping too much: not at all 4. Feeling tired or having little energy: not at all 5. Poor appetite or overeating: not at all 6. Feeling bad about yourself - or that you are a failure or have let yourself or your family down: not at all 7. Trouble concentrating on things, such as reading the newspaper or watching television: not at all 8. Moving or speaking so slowly that other people could have noticed. Or the opposite - being so fidgety or restless that you have been moving around a lot more than usual: not at all 9. Thoughts that you would be better off or of hurting yourself in some way: not at all Total score: 0 Depression Screening Interpretation: Negative Depression Screening Done: Yes 19450 - PHQ-9 Billing: Yes Source: Developed by Drs. Huan Espinosa, Sumi Winchester, Charanjit Bunn and colleagues, with an educational jareth from [employer]. Thrive Questionnaire Date Thrive assessed: 04/12/25 I am a: Patient What is your living situation today?: I have a steady place to live Within the past 12 months, did the food you bought not last and you didn't have the money to get more?: Never true Within the past 12 months, did you worry whether your food would run out before you got money to buy more?: Never true Do you have trouble paying for medicines?: No Do you have trouble getting transportation to medical appointments?: No Do you have trouble paying your heating and electricity bill?: No Do you have trouble taking care of your child, family member or friend?: No Do you have trouble with day-to-day activities such as bathing, preparing meals, shopping, managing finances, etc.?: No Are you currently unemployed and looking for a job?: No Are you interested in more education?: No Please select the resources that you would like help with: None Currently or been in a relationship where the following occur: No concerns reported THRIVE Score: 0 AUDIT C Alcohol Use Questionnaire (AUDIT-C) 1. How often do you have a drink containing alcohol?: Never 3. How often do you have six or more drinks on one occasion?: Never Total Score: 0 BEST-7 AMB Questionnaire BEST-7 Date BEST - 7 assessed: 10/11/23 Feeling nervous, anxious, or on edge: 0 = Not at all Not being able to stop or control worryin = Not at all Worrying too much about different things: 0 = Not at all Trouble relaxin = Not at all Being so restless that it is hard to sit still: 0 = Not at all Becoming easily annoyed or irritable: 0 = Not at all Feeling afraid as if something awful might happen: 0 = Not at all Total BEST-7 score (0-4 normal; 5-9 mild; 10-14 moderate; 15-21 severe): 0 Source: Developed by Drs. Huan Espinosa, Sumi Winchester, Charanjit Bunn and colleagues, with an educational jareth from [employer]. Physical exam (Primary Care) Vital Signs: Last Vital Signs Temp 98.1 F 04/19/25 08:42 Pulse 82 04/19/25 08:42 Resp 12 04/19/25 08:42 BP 104/74 04/19/25 08:42 Pulse Ox 98 04/19/25 08:42 Oxygen Delivery Method Room Air 04/19/25 08:42 BMI result Body Mass Index 26.5 Tobacco/Smoking Status: Tobacco use Status Tobacco use date assessed 04/19/25 04/19/25 08:44 Patient Tobacco Use Status Former Tobacco user 04/19/25 08:45 Tobacco use type Cigarette 04/19/25 08:45 e-Cigarette/Vaping Use Never Used 04/19/25 08:45 PHQ-9: PHQ-9 Score PHQ-9: Total score 0 04/19/25 08:44 Depression Screening Interpretation: Negative Thrive Assessment: Date of Thrive Assessment Date Thrive assessed 04/12/25 04/19/25 08:44 Currently or been in a relationship where the following occur: No concerns reported Coding Level of Care Code Est Pt Prev Care 40-64y(48880) Diagnoses Physical exam Z00.00 Cervical lymphadenopathy R59.0 Primary osteoarthritis of right hip M16.11 Osteoarthritis type: primary Hypothyroidism, unspecified type E03.9 Hypothyroidism type: unspecified Additional Codes PHQ-9 - 13541 - PHQ-9 Billing: Yes ([id number]) Assessment & Plan Assessment & Plan (1) Physical exam: Code(s): Z00.00 - Encounter for general adult medical examination without abnormal findings Category: Medical (2) Cervical lymphadenopathy: Code(s): R59.0 - Localized enlarged lymph nodes Category: Medical (3) Osteoarthritis of right hip: Code(s): M16.11 - Unilateral primary osteoarthritis, right hip Category: Medical Qualifiers: Osteoarthritis type: primary Qualified Code(s): M16.11 - Unilateral primary osteoarthritis, right hip (4) Hypothyroidism: Code(s): E03.9 - Hypothyroidism, unspecified Category: Medical Qualifiers: Hypothyroidism type: unspecified Qualified Code(s): E03.9 - Hypothyroidism, unspecified Plan 54 year old female for CPE Interval history reviewed Preventive measures for age discussed Continue follow up intergrative for thyroid, resources representative Labs ordered Cervical LN-referral ENT Refer derm FBSE Flu declined Orders: Orders Comprehensive Met. Panel Today E03.9 - Hypothyroidism, unspecified, E88.9 - Metabolic disorder, unspecified, R53.83 - Other fatigue, Z13.220 - Encounter for screening for lipoid disorders Copper, serum Today E03.9 - Hypothyroidism, unspecified, E88.9 - Metabolic disorder, unspecified, R53.83 - Other fatigue, Z13.220 - Encounter for screening for lipoid disorders Ceruloplasmin Today E03.9 - Hypothyroidism, unspecified, E88.9 - Metabolic disorder, unspecified, R53.83 - Other fatigue, Z13.220 - Encounter for screening for lipoid disorders Complete Blood Count Auto Diff Today E03.9 - Hypothyroidism, unspecified, E88.9 - Metabolic disorder, unspecified, R53.83 - Other fatigue, Z13.220 - Encounter for screening for lipoid disorders Magnesium, RBC Today E03.9 - Hypothyroidism, unspecified, E88.9 - Metabolic disorder, unspecified, R53.83 - Other fatigue, Z13.220 - Encounter for screening for lipoid disorders IRON PROFILE Today E03.9 - Hypothyroidism, unspecified, E88.9 - Metabolic disorder, unspecified, R53.83 - Other fatigue, Z13.220 - Encounter for screening for lipoid disorders Copper RBC Today E03.9 - Hypothyroidism, unspecified, E88.9 - Metabolic disorder, unspecified, R53.83 - Other fatigue, Z13.220 - Encounter for screening for lipoid disorders Selenium, Serum Today E03.9 - Hypothyroidism, unspecified, E88.9 - Metabolic disorder, unspecified, R53.83 - Other fatigue, Z13.220 - Encounter for screening for lipoid disorders Zinc Today E03.9 - Hypothyroidism, unspecified, E88.9 - Metabolic disorder, unspecified, R53.83 - Other fatigue, Z13.220 - Encounter for screening for lipoid disorders Lipid Panel Today E03.9 - Hypothyroidism, unspecified, E88.9 - Metabolic disorder, unspecified, R53.83 - Other fatigue, Z13.220 - Encounter for screening for lipoid disorders Referrals Dermatology Referral Z12.83 - Encounter for screening for malignant neoplasm of skin Ear/Nose/Throat Referral R59.0 - Localized enlarged lymph nodes MORTGAGE COUNSELOR Referral Z78.0 - Asymptomatic menopausal state
[2025-04-19 08:42] VITALS: BP 104/74; PULSE 82; RESP 12; TEMP 36.7; O2SAT 98; BMI 26.5
--- OUTSIDE RECORDS SUMMARY | 2025-04-19 08:51 | XMS_ITS | Clinical Summary ---
Author Organization [facility] Address [address] [place] [address] Phone Care Team Providers Care Rose Grading Supervisor Name Role Phone Bonnie Menjivar MD Primary Care Provider [phone] Allergies Active Allergy Reactions Criticality Noted Date Comments Morphine Itching Low 04/28/2003 Medications [place] Thyroid 15 mg tablet Take 1 tablet (15 mg total) by mouth 4 (four) times a week. , , sat, saturday Active [place] Thyroid 30 mg tablet Take 1 tablet (30 mg total) by mouth 4 (four) times a week. , , sat, saturday Active [place] Thyroid 60 mg tablet Take 1 tablet (60 mg total) by mouth 3 (three) times a week. Sat, Sat, Saturday Active glucosam/chond- msm1/C/julia/bor (GLUCOSAMINE-CH OND-MSM COMPLEX ORAL) Take by mouth 2 (two) times a day. Active multivit with minerals/lutein (MULTIVITAMIN 50 PLUS ORAL) Take by mouth 1 (one) time each day. Active Vitamin C tablet Take 1 tablet (100 mg total) by mouth 2 (two) times a day. Active SELENIUM ORAL Take 200 mcg by mouth 2 (two) times a week. Saturday and Saturday Active cholecalciferol (VITAMIN D-3) 50 mcg (2,000 unit) tablet Take 1 tablet (2,000 Units total) by mouth 1 (one) time each day. Active COPPER GLUCONATE ORAL Take 3 mg by mouth 1 (one) time each day. Active ferrous sulfate 325 mg (65 mg iron) EC tablet Take 1 tablet (325 mg total) by mouth 1 (one) time each day in the evening. Do not crush, chew, or split. Active MAGNESIUM GLYCINATE ORAL Take 400 mg by mouth 2 (two) times a day. Active ibuprofen (AdviL) 200 mg tablet Take 2 tablets (400 mg total) by mouth every 6 (six) hours if needed. Active ibuprofen/diphe nhydramine cit (ADVIL PM ORAL) Take by mouth at bedtime as needed. Active UNABLE TO FIND Med Name: [place] Active liothyronine (CYTOMEL) 5 mcg tablet Take 3 tablets (15 mcg total) by mouth 1 (one) time each day. Active Active Problems No known active problems Encounters Date Type Department Care Team Description 01/18/2025 10:30 AM EDT Consult Periop Testing - [facility] [address] [place] [address] Sonia Cyr PA Preoperative examination (Primary Dx); Primary osteoarthritis of right hip; Acquired hypothyroidism from Last 3 Months Surgical History Surgery Date Site/Laterality Comments MASTECTOMY 03/28/2021 Bilateral SECTION 06/17/2002 - 06/16/2003 SECTION 06/17/2009 - 06/16/2010 HYSTEROSCOPY W/ POLYPECTOMY BUNIONECTOMY Left ADENOIDECTOMY WISDOM TOOTH EXTRACTION UPPER GASTROINTESTINAL ENDOSCOPY COLONOSCOPY Medical History Medical History Date Comments Hypothyroidism PONV (postoperative nausea and vomiting) Family History Medical History Relation Name Comments Heart attack Father Lung cancer Father Stroke Father asbestosis Father No Known Problems Mother Rheum arthritis Sister 1 Migraines Sister 2 Anemia Sister 3 Hypertension Sister 3 Relation Name Status Comments Father Mother Alive Sister 1 Alive Sister 2 Alive Sister 3 Alive Social History Tobacco Use Types Packs/Day Years Used Date Smoking Tobacco: Former Cigarettes 0.5 8 0 06/17/1989 - 1997 Smokeless Tobacco: Never Tobacco Cessation:Counseling Given: Not Answered Alcohol Use Standard Drinks/Week Comments Not Currently 0 (1 standard drink = 0.6 oz pur e alcohol) Comments Unknown Sex and Gender Information Value Date Recorded Sex Assigned at Not on file Legal Sex Female 12:36 PM EDT Gender Identity Not on file Sexual Orientation Not on file 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 Not on file Not on fi le Not on file Obstetrics History Last Filed Vital Signs Vital Sign Reading Time Taken Comments Blood Pressure 119/85 01/18/2025 10:21 AM EDT Pulse 76 01/18/2025 10:21 AM EDT Temperature 36.7 C (98.1 F) 01/18/2025 10:21 AM EDT Respiratory Rate 18 01/18/2025 10:21 AM EDT Oxygen Saturation 97% 01/18/2025 10:21 AM EDT Inhaled Oxygen Concentration - - Weight 60.8 kg (134 lb) 01/18/2025 10:21 AM EDT Height 158 cm (5' 2.21 ) 01/18/2025 10:21 AM EDT Body Mass Index 24.35 01/18/2025 10:21 AM EDT Plan of Treatment Health Maintenance Due Date Last Done Comments Colorectal Cancer Screening: Colonoscopy 1971 Hepatitis B Vaccines (1 of 3 - 19+ 3-dose series) 1990 Cervical Cancer Screening: P ap Smear 1992 Pneumococcal Vaccine: 50+ Ye ars (1 of 1 - PCV) 2021 Zoster Vaccines (1 of 2) 2021 Depression Screening 06/17/2024 HIV Screening 12/25/2024 Hepatitis C Screening 12/25/2024 Social Influencers of Health Screening 12/25/2024 COVID-19 Vaccine (1 - 2023-2 5 season) 2025 Influenza Vaccine (#1) 2025 DTaP,Tdap,and Td Vaccines (2 - Td or Tdap) 11/05/2032 11/05/2022 RSV Immunization Adult Patie nts (1 - 1-dose 75+ series) 2046 HIB Vaccines Aged Out No longer eligi ble based on patient's age to complete this topic HPV Vaccines Aged Out No longer eligi ble based on patient's age to complete this topic Hepatitis A Vaccines Aged Out No long er eligible based on patient's age to complete this topic IPV Vaccines Aged Out No longer eligi ble based on patient's age to complete this topic MMR Vaccines Aged Out No longer eligi ble based on patient's age to complete this topic Meningococcal ACWY Vaccine Aged Out N o longer eligible based on patient's age to complete this topic Meningococcal B Vaccine Aged Out No l onger eligible based on patient's age to complete this topic RSV Immunization Patients Un letitia 20 months Aged Out No longer eligible b ased on patient's age to complete this topic Varicella Vaccines Aged Out No longer eligible based on patient's age to complete this topic [place] [address] [place] [address] Care Teams Rose Grading Supervisor Relationship Specialty Start Date End Date Bonnie Menjivar MD [address] [place] [address] PCP - General Internal Medicine 01/12/25
--- OUTSIDE RECORDS SUMMARY | 2025-04-19 08:51 | XMS_ITS | Data Portability ---
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 History, examination and x-rays are consistent with advanced osteoarthritis with gtak-tr-endy articulation. After further discussion regarding treatment options she wishes to proceed with planning for total hip arthroplasty. Follow-up with Dr. Treviño. This patient was seen and evaluated by Jia Aguirre MS, PA-C in indirect conjunction with documenting/superv ising provider Richard Treviño MD. He agrees with history, physical examination, tests/diagnostic imaging, and treatment plan. This document was generated using voice recognition software. As a result, there may be unintended spelling, grammatical and/or textual errors. Not available 10/29/2024 11:08:46 11/27/2024 11/27/2024 HPI : T dolores you for the pleasure of requesting a consultation on this patient. Patient comes in complaining of right hip pain. She has been dealing with the pain for years, but it has recently worsened. T his patient is experiencing right hip pain for a period lasting greater than the last three months, which is severe (VAS score greater than or equal to 6 on a 0-10 scale) in intensity and the restriction of function (appropriate for a patient of this age) are intolerable. The pain substantially limits activities of daily living. In particular, walking tolerance and ability to stair climb is reduced. Conservative management such as non-steroidal anti-inflammatory medications available by prescription, physician directed therapy, ice and/or heat and activity modification have been minimally effective or deemed insufficient by the patient for a period lasting greater than 3-6 months in duration. Assistive devices and external support were not deemed by the patient to be helpful in improving their function. The patient is unable to tolerate further physical therapy at this time. Review of systems is negative for rapidly progressive neurological disorder, chest pain, shortness of breath, fevers, chills, or any signs of active or persistent local or systemic infection. Physical Exam : Patient is well nourished, well-developed, in no acute distress, with appropriate mood and affect. The patient is oriented to time, place, and person. Respirations are even and unlabored. Gait evaluation reveals a limp. There is no inguinal adenopathy. Examination of the contralateral hip shows normal range of motion, strength, no tenderness, and intact skin. The affected limb is well-perfused, shows a grossly normal motor and sensory examination. Examination of the hip shows no skin lesions. Hip motion is reduced and causes pain. FADIR is positive and JD is positive. Stinchfield test is positive. Leg lengths are approximately right less than left by 1 cm. Both hips are stable and muscle strength is normal. Pedal pulses are palpable. Imaging: Radiographs of the right hip from August 2024 demonstrate degenerative joint disease with joint space narrowing, osteophyte formation, and subchondral sclerosis. There is uwrf-ig-rbcf articulation. There is lateral subluxation of the femoral head consistent with likely mild dysplasia. Assessment/Plan : The patient is an appropriate candidate for consideration of right total hip replacement. An extensive discussion was conducted of the natural history of the disease and the variety of surgical and non-surgical treatment options available to the patient. A risk/benefit analysis was discussed with the patient reviewing the advantages and disadvantages of surgical intervention at this time. A full explanation was given of the nature and the purpose of the procedure and anesthesia, its benefits, possible alternative methods of diagnosis or treatment, the risks involved, the possibility of complications, the foreseeable consequences of the procedure and the possible results of the non-treatment. No guarantee or assurance was made as to the results that may be obtained. Specifically, the risks were identified to include, but are not limited to the following: Infection, phlebitis, pulmonary embolism, , paralysis, dislocation, pain, stiffness, instability, limp, weakness, breakage, leg-length inequality, uncontrolled bleeding, nerve injury, blood vessel injury, pressure sores, anesthetic risks, delayed healing of wound and bone, and wear and loosening. Additional risks of robotic hip replacement were discussed (if used) including but not limited to pin site infection, draining, longer incision, longer OR time, and fracture near the pin sites. Further discussion was undertaken with the patient about the details of surgical preparation, treatment, and postoperative rehabilitation including medical clearance, autotransfusion, the hospital course, and the postoperative rehabilitation involved. As a part of routine preoperative counseling, if the patient is a smoker, the patient recognizes the increased risk of complications in patients who utilize tobacco products. The patient has also been counseled regarding the elevated risk of surgical complications in patients with an elevated BMI. The patient demonstrates understanding of the increased risk in such patients. The patient was encouraged to participate in physical activity and diet modification under the direction of their primary care physician. We will plan on proceeding with right total hip arthroplasty using the Parker hip replacement system. However, it is possible during the preoperative planning process or due to intraoperative findings that a different implant system may be utilized in order to optimize the patient's outcome. We had a discussion regarding implant and bearing options. We had a detailed discussion of the advantages and limitations of the specific implant designs, materials and bearing surfaces. All questions were answered to the patient's satisfaction, and the patient was asked to call the office with any further concerns. All in all, I feel that this patient is a good candidate for surgical reconstruction. An in-depth discussion of the risks and benefits of surgery as noted above were had with patient, including any reasonable alternatives and the risks and benefits of the alternatives. The patient was given time to understand and ask questions, and the surgical consent was signed and dated today. The patient is also aware that questions can be asked at any time before the surgical date to me or my team. Plan for right total hip replacement. PCM Services Statement: Principal Care Management (PCM) services were recommended to this patient with a diagnosis of osteoarthritis who has failed conservative management and is indicated for, as well as undergone shared decision-making to undergo a total joint arthroplasty procedure. PCM services provided to the patient include but not limited to structured recording of patient health information within our electronic medical record system, 07/01 access and continuity of care to qualified practitioners and/or clinical staff, comprehensive care management and planning to optimize pre-surgical needs, choice of an appropriate surgical facility, preoperative patient education, and coordination of patient-specific yesy-operative needs. This will be actively managed by the clinical staff with physician supervision throughout enrollment in the program. The clinical staff will help manage care transitions as well as coordinate home and community-based care as it pertains to the patient's needs. The patient expresses understanding and awareness of PCM services, including but not limited to potential cost- sharing responsibilities; only one practitioner can furnish and bill for PCM services during a calendar month, and the patient can stop these services at any time. The patient understands and has verbally consented to accept PCM services and has been provided a copy of a written explanation of this service today. [email or web address] Not available 11/27/2024 09:49:32 01/21/2025 01/21/2025 [facility]: PRINCIPAL CARE MANAGEMENT (PCM) Procedure : Primaryright total hip arthroplasty. Principle Diagnosis : Right hip dysplasia PCM status : phone call Surgeon : Dr. Richard Treviño Factility : [facility] Specific Patient Concerns Discussed at the Time of PCM Visit : med prior auth Discharge Plan : Same Day Discharge Pertinent Past Medical History : See Past Medical History section (reviewed) Pertinent Past Surgical History : See Surgical History Section (reviewed) Pertinent Medication History : See Medication Reconciliation Section (reviewed) Allergies : See Medication Reconciliation Section (reviewed) Presurgical Management Plan : 1. General Pre-operative medical optimization: a. Preoperative Visits/Clearance: completed by [facility] b. Labs/Testing: reviewed 2. Medical Problem #1: none a. Plan 3. Medical Problem #2: a. Plan Post Surgical Management Plan : 1. Recommended DVT Prophylaxis: Aspirin 2. Social Support and Transportation Plan: arrangements made with family/friends 3. Post Operative Physical Therapy Plan: Home PT 5. Special Needs: ambulatory assistive devices will be provided if necessary 6. Scheduling Needs: 1-3 week postop visit is scheduled. Time spent during this encounter was necessary for review of relevant records to include PMH and available EMR notes, to navigate this patient toward the correct facility for surgical care, to determine necessary referrals and pre-operative testing, to provide education regarding surgery and recovery, to establish perioperative social support needs, and to optimize the patient's surgical outcome. Ample time was provided to answer all patient questions to their satisfaction. The total time spent providing care coordination and education services for this patient was 30 minutes or greater including, but not limited to, the following services: a. Coordination of Pre-operative clearance (10-15 minutes) b. Coordination of Operative Equipment and surgical planning including preoperative templating (10 minutes) c. Review of pertinent visit documentation regarding medical optimization and post operative care recommendations (10 Minutes) d. Coordination of postoperative care including but not limited to social barriers, physical therapy, wound management, etc. (5-10 Minutes) Jia Aguirre PA-C [facility] [email or web address] Not available 01/21/2025 14:44:09 02/11/2025 02/11/2025 HPI : Patient is here for a 2 week follow-up from a right MARIE. Patient denies fevers, chest pain and shortness of breath. Patient has been compliant with anticoagulant protocol. She is very pleased with early results of her right sided total hip arthroplasty. She states that she felt immediately improved after surgery compared to her preoperative condition. She believes that she still has some gains to make in the way of strength. She is getting better from 1 day to the next. She is scheduled to start physical therapy next Saturday. She is very complementary of all of our staff and our systems. She states that, as soon as I first stepped in this office I knew I was in the right place. Physical Exam : Patient is well nourished, well- developed, in no acute distress, with appropriate mood and affect. The patient demonstrates good hip motion. Patient demonstrates 5 out of 5 strength on hip flexion and 5 out of 5 strength on knee extension. The incision is clean and dry with no signs of infection. Negative calf tenderness, negative Maninder's sign. Assessment/Plan : The patient is doing well status post total hip arthroplasty. Patient will continue and complete 28 day anticoagulation therapy and continue physical therapy. Return for follow-up in 1 month; sooner with any problems. This patient was seen and evaluated by Jia Aguirre MS, PA-C in indirect conjunction with documenting/[facility] ising provider Richard Treviño MD. He agrees with history, physical examination, tests/diagnostic imaging, and treatment plan. Not available 02/11/2025 12:09:27 03/10/2025 03/10/2025 HPI : Patient is here for a 6 week follow-up from a right total hip replacement. She is recovering well. She is walking without assist device. She canes uses a cane for long distances. She has minimal pain. She is taking occasional Tylenol. She feels much improved compared to preoperatively. She states the arthritic pain was gone immediately. She is happy with her results so far. Physical Exam : Patient is well nourished, well- developed, in no acute distress, with appropriate mood and affect. The patient is AAOx3. The patient demonstrates good hip motion and strength. The incision is well healing. Assessment/Plan : The patient is functioning well 6 weeks from total hip arthroplasty. Continue physical therapy as needed. Return for follow-up in 2 months with x-rays at that time. [email or web address] Not available 03/10/2025 09:31:52 Plan of Treatment Reminders Order Date Submit Date Provider Last Modified By Organization Details Last Modified Time Details Appointments FOLLOW UP 2024 04:15P M JIA AGUIRRE PA-C Not available Not available Not available Lab None recorded. Referral None recorded. Procedures None recorded. Surgeries total hip arthropla sty (SURG) [address] [facility] [place], [address] [place] [address], [id number], 01/27/2025 09:13:09 Imaging None recorded. Medication Orders None recorded. Patient TargetsNo targets recorded. Patient Instructions Encounter Date Encounter Id Patient Instructions Last Modified By Organization Details Last Modified Time 02/11/2025 [id number] physical therapy * - Evaluate and treat as indicated to reduce pain and to improve strength, mobility, stability, range of motion, and function. Please teach a home exercise plan and incorporate PT into patient's exercise routine. 2-3 sessions weekly for 6-8 weeks. [email or web address] Not available 02/18/2025 08:16:07 Reason for Referral None Reported. Problems Name Problem SNOMED Code Status Onset Date Resolution Date Notes Provider Name and Address Organization Details Recorded Time Osteoarthri tis of right hip joint 0344224126543 07 Active 2024 JIA AGUIRRE PA-C [address], [place], [address], [place] - [facility], P 5 12:32:47 Arthritis of hip 85923632 Active 2024 Richard Treviño MD [address], [place], [address], [place] - [facility], P 5 09:47:05 Osteoarthri tis of right hip joint due to dysplasia 0929561611957 01 Active 2024 Richard Treviño MD [address], [place], [address], [place] - [facility], P 5 09:48:30 History of repair of hip joint 858014768 Active 2024 JIA AGUIRRE PA-C [address], [place], [address], [place] - [facility], P 5 12:07:44 Surgical follow-up 457460304 Active 2024 Richard Treviño MD [address], [place], [address], [place] - [facility], P 5 09:30:52 Problem Notes None recorded. Procedures Surgical History Date Name Laterality Status Provider Name and Address Organization Details Recorded Time 01/27/20 25 TOTAL HIP ARTHROPLASTY (SURG) completed Zenobia Herrera [facility] [place], [facility] 01/27/2025 09:13:36 Imaging Results None recorded. Procedure Notes None recorded. Medical Equipment None Reported. Allergies Allergen ID Allergen Name Allergen Category Reaction Reaction Severity Criticality Documentation Date Start Date Code Code System Note Provider Name and Address Organization Details Recorded Time 13010 morphine medicatio n Not available Not available Not available 08/20/20242002 7052 RxNorm Yulisa cavazos, [place] - [facility], P 5 11:37:05 Medications Name Sig Start Date Stop Date Status Note LastModified by Organization Details LastModified Time [place] Thyroid 60 mg tablet TAKE 1 TABLET BY MOUTH EVERY MORNING active Not Available Not Available No t Available promethazin e-DM 6.25 mg-15 mg/5 mL oral syrup TAKE 5 ML BY MOUTH EVERY 6 HOURS FOR 5 DAYS 02/11 completed Not Available Not Available Not Available meloxicam 15 mg tablet TAKE 1 TABLET BY MOUTH DAILY FOR 15 DAYS 02/11 completed Not Available Not Available Not Available liothyronin e 5 mcg tablet TAKE 3 TABLETS BY MOUTH EVERY MORNING active Not Available Not Available No t Available acetaminoph en 500 mg tablet TAKE 2 TABLETS BY MOUTH EVERY 8 HOURS FOR 28 DAYS active Not Available Not Available No t Available ondansetron 8 mg disintegrat ing tablet DISSOLVE 1 TABLET UNDER THE TONGUE EVERY 8 HOURS NEEDED FOR NAUSEA 02/11 completed Not Available Not Available Not Available [place] Thyroid 15 mg tablet TAKE 1 TABLET BY MOUTH EVERY MORNING IN ADDITION TO 30 MG active Not Available Not Available No t Available methocarbam ol 750 mg tablet TAKE 1 TABLET BY MOUTH EVERY 6 HOURS NEEDED 03/10 completed Not Available Not Available Not Available benzonatate 100 mg capsule TAKE 1 CAPSULE BY MOUTH THREE TIMES DAILY FOR 7 DAYS NEEDED FOR COUGH 02/11 completed Not Available Not Available Not Available pantoprazol e 40 mg tablet,viraj yed release TAKE 1 TABLET BY MOUTH EVERY DAY NEEDED 03/10 completed Not Available Not Available Not Available oseltamivir 75 mg capsule TAKE 1 CAPSULE BY MOUTH TWICE DAILY FOR 5 DAYS 02/11 completed Not Available Not Available Not Available polymyxin B sulfate 10,000 unit-trimet hoprim 1 mg/mL eye drops INSTILL 1 DROP IN BOTH EYES EVERY 3 HOURS FOR 7 DAYS 02/11 completed Not Available Not Available Not Available [place] Thyroid 30 mg tablet TAKE 1 TABLET BY MOUTH EVERY MORNING active Not Available Not Available No t Available Enteric Coated Aspirin 81 mg tablet,viraj yed release Take 1 tablet twice a day by oral route for 28 days. 03/10 completed Not Available Not Available Not Available ipratropium bromide 42 mcg (0.06 %) nasal spray USE 2 SPRAYS IN EACH NOSTRIL FOUR TIMES DAILY FOR 5 DAYS 02/11 completed Not Available Not Available Not Available oxycodone 5 mg tablet TAKE 1 TABLET BY MOUTH EVERY 4 HOURS NEEDED FOR PAIN 09/24 /2025 completed Not Available Not Available Not Available Senokot-S 8.6 mg-50 mg tablet Take 1 tablet twice a day by oral route. 03/10 completed Not Available Not Available Not Available tranexamic acid 650 mg tablet TAKE 3 TABLETS BY MOUTH IN THE MORNING FOR 3 DAYS. START ON THE FIRST DAY AFTER YOUR SURGERY 02/11 completed Not Available Not Available Not Available Vitals Date Recorded Body weight Body mass index (BMI) Body height Provider Name and Address Organization Details Last Updated DateTime 11/27/2024 58272.34 g 25.4 kg/m2 157.[address] [place] [facility], P 11/27/2024 09:24:26 Date Recorded Body height Body mass index (BMI) Body weight Provider Name and Address Organization Details Last Updated DateTime 03/10/2025 157.48 cm 25.8 kg/m2 [address]98.[address] [facility] [place] 03/10/2025 09:18:45 Social History None recorded. Functional Status None recorded. Mental Status None recorded. Family History Nothing Reported. Medical History Condition Response Coronary Artery Disease N Gout N Hyperthyroidism N Blood Transfusion N MRSA N Emphysema N Depression N COPD N Hypothyroidism Y Pacemaker N Vascular Disease N Gastrointestinal Disease N Anxiety Disorder N Autoimmune disease N Arthritis Y Cancer N Stroke N High Cholesterol N Neurologic Disorder N Liver Disease N Organ Transplant N Arrhythmia N Rheumatoid Arthritis N Fibromyalgia N Kidney Disease N Allergies/Hayfever N Adverse Reaction to Anesthesia N Thyroid Problems N Anemia N Brain Injury N Heart Attack (NE) N Osteopenia N Diabetes N Bleeding Disorder N Seizures/Epilepsy N AIDS/HIV N Congestive Heart Failure (CHF) N Asthma N Amputation N Reflux/GERD N Sleep Apnea N Hepatitis N Aneurysm N Heart Disease N Pulmonary Embolism N Hypertension N Osteoporosis N Gynecological HistoryNo gynecological history recorded. Obstetrics History GPAL:G 0 P 0 0 0 0 Past Encounters Encounter ID Performer Location Encounter Start Date Encounter Closed Date Diagnosis/Indication Diagnosis SNOMED-CT Code Diagnosis ICD10 Code Diagnosis IMO Codes Diagnosis Note [id number] MINISTERIO CRANDALL [address] [place] [address] 08/20/2024 11:32:23 08/20/2024 12:32:23 Pain of hip region 59662917 M25.551 941163 Osteoarthr itis of right hip joint 4385169803 51913 M16.11 [id number] MINISTERIO CRANDALL [facility] [address] [address] 10/29/2024 10:41:24 10/29/2024 11:13:32 Osteoarthritis of right hip joint 5046344545 78900 M16.11 [id number] MD STEVEN Wing [facility] [address] [address] 11/27/2024 09:13:31 11/27/2024 09:55:48 Osteoarthritis of right hip joint 5742609846 24001 M16.11 0428724 Arthritis of hip 2633646 6 M13.859 Osteoarthr itis of right hip joint due to dysplasia 3168108436 67369 M16.31 3423993 [id number] MINISTERIO CRANDALL [address] [address] 01/21/2025 09:59:00 01/21/2025 14:47:14 Osteoarthritis of right hip joint due to dysplasia 6930731196 94055 M16.31 6004294 [id number] MINISTERIO CRANDALL [facility] [address] [address] 02/11/2025 11:35:54 02/11/2025 12:06:44 Osteoarthritis of right hip joint due to dysplasia 5902102925 66073 M16.31 [id number] History of repair of hip joint 658556637 Z96.352 [id number] MD STEVEN Wing [address] [address] 03/10/2025 08:56:22 03/10/2025 09:33:25 Surgical follow-up 015274470 Z47.1 Z96.641 [id number] Health Concerns Section Related Observation LastModified by Organization Detai ls LastModified Time None Recorded Concern Status LastModified by Organization Details LastModified Time None Recorded Advance Directives Directive None Recorded Payers Insurance Date Sequence Insurance Name Policy Number Policy Ryder Covered Member ID Ryder Member ID Guarantor Name 03/07/2025 1 [facility] [id number] Flex [employer] [id number] Leigh gill Notes Date Note Type Note Provider Name and Address Organization Details Recorded Time 10/29/2024 text/html 54-year-old female presents for reevaluation of right hip pain. She reports that she has been doing physical therapy regularly since her last visit to the office and as a result she is feeling improved. However, she still has marked limitations and pain at the hip and groin. She has given careful consideration to her options and wishes to proceed with total hip arthroplasty. JIA AGUIRRE PA-C [address] [place] [address],[facility] [address], [place], [address], [place] - [facility], 10/29/2024 11:09:01 OBGyn Episode No OBEpisode recorded.
--- OUTSIDE RECORDS SUMMARY | 2025-04-19 08:51 | XMS_ITS ---
Author Name [facility] Organization Unknown History of Medication Use Medication Directions Dispensed Refills Start Date End Date [facility] Enteric Coated Aspirin 81 mg tablet,delayed release Take 1 tablet twice a day by oral route for 28 days. 01/21/2025 active Enteric Coated Aspirin 81 mg tablet,delayed release Take 1 tablet twice a day by oral route for 28 days. 01/21/2025 active meloxicam 15 mg tablet Take one tablet daily for 15 days. 01/21/2025 active methocarbamol 750 mg tablet Take 1 tablet every 6 hours by oral route as needed. 01/21/2025 active ondansetron 8 mg disintegrating tablet Take 1 tablet dissolved under the tongue every 8 hours as needed for nausea. 01/21/2025 active oxycodone 5 mg tablet Take 1-2 tablets every 4 hours as needed for pain. 01/21/2025 active pantoprazole 40 mg tablet,delayed release Take 1 tablet every day by oral route as needed. for 28 days. 01/21/2025 active Senokot-S 8.6 mg-50 mg tablet Take 1 tablet twice a day by oral route. 01/21/2025 active Senokot-S 8.6 mg-50 mg tablet Take 1 tablet twice a day by oral route. 01/21/2025 active tranexamic acid 650 mg tablet Take 3 tablets in the morning for 3 days; start on the first day after your surgery. 01/21/2025 active Tylenol Extra Strength 500 mg tablet Take 2 tablets every 8 hours by oral route for 28 days. 01/21/2025 active meloxicam 15 mg tablet TAKE 1 TABLET BY MOUTH DAILY FOR 15 DAYS 5 completed ondansetron 8 mg disintegrating tablet DISSOLVE 1 TABLET UNDER THE TONGUE EVERY 8 HOURS NEEDED FOR NAUSEA 5 completed tranexamic acid 650 mg tablet TAKE 3 TABLETS BY MOUTH IN THE MORNING FOR 3 DAYS. START ON THE FIRST DAY AFTER YOUR SURGERY 5 completed acetaminophen 500 mg tablet TAKE 2 TABLETS BY MOUTH EVERY 8 HOURS FOR 28 DAYS active acetaminophen 500 mg tablet TAKE 2 TABLETS BY MOUTH EVERY 8 HOURS FOR 28 DAYS active [place] Thyroid 15 mg tablet TAKE 1 TABLET BY MOUTH EVERY MORNING IN ADDITION TO 30 MG active [place] Thyroid 15 mg tablet TAKE 1 TABLET BY MOUTH EVERY MORNING IN ADDITION TO 30 MG active [place] Thyroid 30 mg tablet TAKE 1 TABLET BY MOUTH EVERY MORNING active [place] Thyroid 30 mg tablet TAKE 1 TABLET BY MOUTH EVERY MORNING active [place] Thyroid 60 mg tablet TAKE 1 TABLET BY MOUTH EVERY MORNING active [place] Thyroid 60 mg tablet TAKE 1 TABLET BY MOUTH EVERY MORNING active benzonatate 100 mg capsule TAKE 1 CAPSULE BY MOUTH THREE TIMES DAILY FOR 7 DAYS NEEDED FOR COUGH active benzonatate 100 mg capsule TAKE 1 CAPSULE BY MOUTH THREE TIMES DAILY FOR 7 DAYS NEEDED FOR COUGH active ipratropium bromide 42 mcg (0.06 %) nasal spray USE 2 SPRAYS IN EACH NOSTRIL FOUR TIMES DAILY FOR 5 DAYS active ipratropium bromide 42 mcg (0.06 %) nasal spray USE 2 SPRAYS IN EACH NOSTRIL FOUR TIMES DAILY FOR 5 DAYS active liothyronine 5 mcg tablet TAKE 3 TABLETS BY MOUTH EVERY MORNING active liothyronine 5 mcg tablet TAKE 3 TABLETS BY MOUTH EVERY MORNING active methocarbamol 750 mg tablet TAKE 1 TABLET BY MOUTH EVERY 6 HOURS NEEDED active oseltamivir 75 mg capsule TAKE 1 CAPSULE BY MOUTH TWICE DAILY FOR 5 DAYS active oseltamivir 75 mg capsule TAKE 1 CAPSULE BY MOUTH TWICE DAILY FOR 5 DAYS active oxycodone 5 mg tablet TAKE 1 TABLET BY MOUTH EVERY 4 HOURS NEEDED FOR PAIN active pantoprazole 40 mg tablet,delayed release TAKE 1 TABLET BY MOUTH EVERY DAY NEEDED active polymyxin B sulfate 10,000 unit-trimethoprim 1 mg/mL eye drops INSTILL 1 DROP IN BOTH EYES EVERY 3 HOURS FOR 7 DAYS active polymyxin B sulfate 10,000 unit-trimethoprim 1 mg/mL eye drops INSTILL 1 DROP IN BOTH EYES EVERY 3 HOURS FOR 7 DAYS active promethazine-DM 6.25 mg-15 mg/5 mL oral syrup TAKE 5 ML BY MOUTH EVERY 6 HOURS FOR 5 DAYS active promethazine-DM 6.25 mg-15 mg/5 mL oral syrup TAKE 5 ML BY MOUTH EVERY 6 HOURS FOR 5 DAYS active [place] Thyroid 15 mg tablet Take 1 tablet (15 mg total) by mouth 4 (four) times a week. , saturday active [place] Thyroid 30 mg tablet Take 1 tablet (30 mg total) by mouth 4 (four) times a week. , , sat, saturday active [place] Thyroid 60 mg tablet Take 1 tablet (60 mg total) by mouth 3 (three) times a week. Sat, Sat, Saturday active cholecalciferol (VITAMIN D-3) 50 mcg (2,000 unit) tablet Take 1 tablet (2,000 Units total) by mouth 1 (one) time each day. active COPPER GLUCONATE ORAL Take 3 mg by mouth 1 (one) time each day. active ferrous sulfate 325 mg (65 mg iron) EC tablet Take 1 tablet (325 mg total) by mouth 1 (one) time each day in the evening. Do not crush, chew, or split. active glucosam/chond-msm1/C /julia/bor (JOOIKCNXNCZ-LSPOQ-CT M COMPLEX ORAL) Take by mouth 2 (two) times a day. active ibuprofen (AdviL) 200 mg tablet Take 2 tablets (400 mg total) by mouth every 6 (six) hours if needed. active ipratropium (ATROVENT) 42 mcg (0.06 %) nasal spray Administer 2 sprays into each nostril 3 (three) times a day if needed. active liothyronine (CYTOMEL) 5 mcg tablet Take 3 tablets (15 mcg total) by mouth 1 (one) time each day. active MAGNESIUM GLYCINATE ORAL Take 400 mg by mouth 2 (two) times a day. active SELENIUM ORAL Take 200 mcg by mouth 2 (two) times a week. Saturday and Saturday active Vitamin C tablet Take 1 tablet (100 mg total) by mouth 1 (one) time each day. active Allergies Allergen Reaction Severity Comment Documented Date Source Statu s MORPHINE ITCHING 04/28/2003 [facility]_THSFRAN active Problems Problem Status Onset Date Problem Type Date of Resolution Source Osteoarthritis of right hip joint due to dysplasia active 2024-11-27 ProblemAct [facility] Surgical follow-up active 2025-03-10 ProblemAct [facility] History of repair of hip joint active 2025-02-11 ProblemAct [facility] Osteoarthritis of right hip joint active 2024-08-20 ProblemAct [facility] Arthritis of hip active 2024-11-27 ProblemAct E [facility] Acquired hypothyroidism active EncounterDiagnosisAct CT_T HSFRAN Primary osteoarthritis of right hip active EncounterDiagnosisAct CT_THS JUAN Encounters Encounter Type Encounter Reason Primary Diagnosis Location Date Ambulatory [facility] 03/09/2025 Ambulatory [facility] 03/09/2025 Ambulatory [facility] 03/09/2025 Ambulatory ROUTINE Unilateral prima ry osteoarthritis, right hip [facility] 01/26/2025 Ambulatory [facility] 01/22/2025 Ambulatory Pre-op Exam Encounter for ot her preprocedural examination [facility] 01/18/2025 Ambulatory Encounter for other preprocedural examination Encounter for other preprocedural examination [facility] 01/12/2025 Ambulatory [facility] 11/30/2024 Ambulatory [facility] 11/30/2024 Ambulatory [facility] 11/27/2024 Ambulatory [facility] 11/26/2024 Ambulatory [facility] 11/10/2024 Ambulatory [facility] 10/30/2024 Ambulatory [facility] 10/29/2024 Ambulatory [facility] 09/23/2024 Ambulatory [facility] 08/21/2024 Ambulatory [facility] 08/20/2024 Ambulatory [facility] 08/20/2024 Ambulatory [facility] 08/20/2024 Ambulatory [facility] 08/19/2024 Ambulatory [facility] 08/19/2024 Ambulatory [facility] 08/19/2024 Ambulatory [facility] 08/06/2024 Ambulatory [facility] 08/06/2024 Ambulatory [facility] 08/06/2024 Care Team Organization Name Specialty Phone Email Start Date End Da gian [facility] 01/13/2025 [facility] Bonnie Menjivar [facility] 01/12/2025 [facility] 2024 [facility] 2024
== END 2025-04-19 09:09 | disposition home or self-care (01) ==
LOC: HO.HMCFM 08:29
PROVIDERS: PCP Internal Medicine; Visit Provider Internal Medicine
DX: Z00.00 Encounter for general adult medical examination without abnormal findings (principal); R59.0 Localized enlarged lymph nodes; M16.11 Unilateral primary osteoarthritis, right hip; E03.9 Hypothyroidism, unspecified

== ENCOUNTER 2025-04-19 08:28 | Outpatient (REF) | payer OTHER, SELFPAY ==
[2025-04-19 10:53] LABS: MANUAL DIFF FLAG NO
--- OUTSIDE RECORDS SUMMARY | 2025-04-19 11:04 | XMS_ITS | Data Portability ---
Author Organization [place] [facility] [place] [facility] [place] Address [address] [place] [address] Care Team Providers Care Director Emergency Department Name Role Phone VIRI ZAPATA Primary Care Provider [phone] VIRI ZAPATA Referring Provider [phone] Assessment Encounter Date Assessment Date Assessment LastModified by Organization Details LastModified Time 10/29/2024 10/29/2024 54-year-old fema le with right hip pain. History, examination and x-rays are consistent with advanced osteoarthritis with cbsw-gs-yxjh articulation. After further discussion regarding treatment options [...] osteophyte formation, and subchondral sclerosis. There is msvk-jz-frpd articulation. There is lateral subluxation of the [...] with right total hip arthroplasty using the [place] hip replacement system. However, it is possible [...] preoperative patient education, and coordination of patient-specific ysey-operative needs. This will be actively managed by [...] available 11/27/2024 09:49:32 01/21/2025 01/21/2025 [facility]: PRINCIPAL CARE MANAGEMENT (PCM) Procedure : Primaryright total hip arthroplasty. Principle Diagnosis : Right hip dysplasia PCM status : phone call Surgeon : Dr. Richard Treviño Factility : [facility] Specific Patient Concerns Discussed at the Time [...] (5-10 Minutes) Jia Aguirre PA-C [facility] [email or web address] Not available 01/21/2025 14:44:09 02/11/2025 02/11/2025 [...] Aguirre MS, PA-C in indirect conjunction with documenting/[facility] ising provider Richard Treviño MD. He agrees [...] total hip arthropla sty (SURG) 2024 025 [facility] [place], [address] [place] [address], [address], 01/27/2025 09:13:09 Imaging None recorded. Medication Orders None recorded. Patient TargetsNo targets recorded. Patient Instructions Encounter Date Encounter Id Patient Instructions Last Modified By Organization Details Last Modified Time 02/11/2025 [id number] physical therapy * - Evaluate and treat [...] Time Osteoarthri tis of right hip joint [id number] 07 Active 2024 JIA AGUIRRE PA-C [address], [place], [address], [place] [facility], P 5 12:32:47 Arthritis of hip 33463639 Active 2024 Richard Treviño MD [address], [place], [address], [place] [facility], P 5 09:47:05 Osteoarthri tis of right hip joint due to dysplasia 9232512465679 01 Active 2024 Richard Treviño MD [address], [place], [address], [place] [facility], P 5 09:48:30 History of repair of hip joint 454594507 Active 2024 JIA AGUIRRE PA-C [address], [place], [address], [place] [facility], P 5 12:07:44 Surgical follow-up 759272891 Active 2024 Richard Treviño MD [address], [place], [address], [place] [facility], P 5 09:30:52 Problem Notes None recorded. Procedures Surgical History Date Name Laterality Status Provider Name and Address Organization Details Recorded Time 01/27/20 25 TOTAL HIP ARTHROPLASTY (SURG) completed Zenobia Herrera [facility] 01/27/2025 09:13:36 Imaging Results None recorded. Procedure Notes None recorded. Medical Equipment None Reported. Allergies Allergen ID Allergen Name Allergen Category Reaction Reaction Severity Criticality Documentation Date Start Date Code Code System Note Provider Name and Address Organization Details Recorded Time 83286 morphine medicatio n Not available Not available Not available 08/20/20242002 7052 RxNorm Yulisa cavazos, [place] - [facility], P 5 11:37:05 Medications Name Sig Start Date Stop Date Status Note LastModified by Organization Details LastModified Time [place] Thyroid 60 mg tablet TAKE 1 TABLET [...] completed Not Available Not Available Not Available [place] Thyroid 15 mg tablet TAKE 1 TABLET [...] completed Not Available Not Available Not Available [place] Thyroid 30 mg tablet TAKE 1 TABLET [...] Address Organization Details Last Updated DateTime 11/27/2024 78080.34 g 25.4 kg/m2 157.[address] [place] [facility] 11/27/2024 09:24:26 Date Recorded Body height Body mass index (BMI) Body weight Provider Name and Address Organization Details Last Updated DateTime 03/10/2025 157.48 cm 25.8 kg/m2 [address]3969.[address] [facility] 03/10/2025 09:18:45 Social History None recorded. [...] Anemia N Brain Injury N Heart Attack ([place]) N Osteopenia N Diabetes N Bleeding Disorder [...] ICD10 Code Diagnosis IMO Codes Diagnosis Note [id number] MINISTERIO CRANDALL [address] [place] [address] 08/20/2024 11:32:23 08/20/2024 12:32:23 Pain of hip region 09507855 M25.551 432812 Osteoarthr itis of right hip joint 1074995574 17129 M16.11 [id number] MINISTERIO CRANDALL [facility] [address] [address] 10/29/2024 10:41:24 10/29/2024 11:13:32 Osteoarthritis of right hip joint 3289019994 89877 M16.11 [id number] [id number] MD STEVEN Wing [facility] [address] [address] 11/27/2024 09:13:31 11/27/2024 09:55:48 Osteoarthritis of right hip joint 2578740717 31195 M16.11 2677798 Arthritis of hip 3854116 6 M13.859 Osteoarthr itis of right hip joint due to dysplasia 7726673846 61338 M16.31 [id number] MINISTERIO CRANDALL [address] [address] 01/21/2025 09:59:00 01/21/2025 14:47:14 Osteoarthritis of right hip joint due to dysplasia 7724302059 12835 M16.31 9277841 [id number] MINISTERIO CRANDALL [facility] [address] [address] 02/11/2025 11:35:54 02/11/2025 12:06:44 Osteoarthritis of right hip joint due to dysplasia 7724368114 13200 M16.31 [id number] History of repair of hip joint 740610137 Z96.739 [id number] MD STEVEN Wing [address] [address] 03/10/2025 08:56:22 03/10/2025 09:33:25 Surgical follow-up 682015261 Z47.1 Z96.641 [id number] Health Concerns Section Related Observation LastModified by Organization Detai ls LastModified Time None Recorded Concern Status LastModified by Organization Details LastModified Time None Recorded Advance Directives Directive None Recorded Payers Insurance Date Sequence Insurance Name Policy Number Policy Ryder Covered Member ID Ryder Member ID Guarantor Name 03/07/2025 1 [facility] [id number] Flex [employer]oks [id number] Leigh gill Notes Date Note Type Note [...] with total hip arthroplasty. JIA AGUIRRE PA-C [address] [place] [address],[facility] [address], [place], [address], [place] [facility], 10/29/2024 11:09:01 OBGyn Episode No OBEpisode recorded.
[2025-04-19 11:59] LABS: Hematocrit 43.0 % (37.0-47.0); Hemoglobin 14.1 g/dl (12.0-16.0); Imm Gran Abs Auto 0.01 X10*3/uL (0.00-0.03); Imm Gran Pct Auto 0.2 % (0.0-0.4); Lymphocytes Absolute Auto 1.7 X10*3/uL (1.2-4.9); Mean Corpuscular HGB Conc 32.8 g/dl (31.0-35.0); Mean Corpuscular Hemoglobin 27.1 pg (27.0-33.0); Mean Corpuscular Volume 82.7 fL (80.0-98.0); NRBC Abs Auto 0.000 X10*3/uL (0.0-0.012); NRBC Pct Auto 0.0 /100WBC (0.0-0.2); Platelet Count 261 X10*3/uL (160-400); Red Blood Count 5.20 X10*6/uL (4.20-5.50); White Blood Count 5.3 X10*3/uL (4.8-10.8)
[2025-04-19 12:33] LABS: Alanine Aminotransferase 25 U/L (0-31); Albumin Level 4.8 g/dL (3.5-5.0); Alkaline Phosphatase 86 U/L (39-117); Anion Gap 11 (12-20); Aspartate Amino Transferase 14 U/L (5-31); Blood Urea Nitrogen 13 mg/dL (9-16); Calcium 10.1 mg/dL (8.4-10.2); Carbon Dioxide 28 mmol/L (22-29); Chloride 109 mmol/L (96-108); Cholesterol 160 mg/dL (<200); Estimated Glomerular Filt Rate > 60; HDL Cholesterol 63 mg/dL (>40); Iron 108 mcg/dL (30-160); Percent Iron Saturation 33 % (15-50); Potassium 4.9 mmol/L (3.3-5.1); Sodium 143 mmol/L (135-145); Total Iron Binding Capacity 325 mcg/dL (228-428); Total Protein 7.5 g/dL (6.5-8.0); Triglycerides 38 mg/dL (<150); Unsaturated Iron Binding 217 ug/dL
[2025-04-27 10:24] LABS: Magnesium, RBC 4.6 mg/dL (4.0-6.4)
[2025-04-29 17:54] LABS: Copper RBC 0.77 mg/L (0.53-0.91)
== END 2025-04-19 08:29 | disposition home or self-care (01) ==
LOC: HO.WFDLDS 08:28
PROVIDERS: PCP Internal Medicine; Visit Provider Internal Medicine
DX: Z00.00 Encounter for general adult medical examination without abnormal findings (principal); E03.9 Hypothyroidism, unspecified; E88.9 Metabolic disorder, unspecified; R53.83 Other fatigue; M54.50 Low back pain, unspecified; E06.3 Autoimmune thyroiditis; R59.0 Localized enlarged lymph nodes; M16.11 Unilateral primary osteoarthritis, right hip; Z90.13 Acquired absence of bilateral breasts and nipples; Z13.220 Encounter for screening for lipoid disorders
CPT/HCPCS: 36415; 80053; 80061; 82390; 82525; 83540; 83735; 84255; 84630; 85025; 96127

== ENCOUNTER 2025-05-21 14:52 | Outpatient (REF) | payer OTHER, SELFPAY ==
--- OUTSIDE RECORDS SUMMARY | 2009-03-07 09:54 | XMS_ITS | Continuity of Care Document ---
Author Organization [facility] Address [address] [place] [address] Phone Care Team Providers Care Construction Representative Name Role Phone Unavailable Unavailable Unavailable Advance Directives Directive Yes / No Effective Date File Name No Information Encounters Encounter Description Practice Location Reason(s) For Visit Diagnoses Date Provider Providers Copied on Encounter [facility], [address], [place], [place], [id number], [place] tel:[phone] [facility] No Information Feb-200 9 No Information Family History Family Member Type Diagnosis Age At Onset No Information Payers Payer name Insurance type Covered alliance party ID Authoriza tion(s) No Information Social History Type Description Quantity Date Captured Comments Sex Female Smoking Status No Information Chief Complaint And Reason For Visit No Information History Of Present Illness Encounter Date Complaint History Of Prese nt Illness No Information Instructions Date Instruction Additional Infor mation No Information Assessments Type Assessment Date No Information
--- OUTSIDE RECORDS SUMMARY | 2025-05-21 18:58 | XMS_ITS | Clinical Summary ---
Author Organization [facility] Address [address] [address] Phone Care Team Providers Care Lock Corner Machine Operator Name Role Phone Bonnie Amin MD Primary Care Provider Allergies Active Allergy Reactions Criticality Noted Date Comments Morphine 08/29/2019 Medications thyroid, pork, (ARMOUR THYROID) 60 mg Tab Take 60 mg by mouth as directed. Three days a week Active thyroid, pork, (ARMOUR THYROID) 30 mg Tab Take 45 mg by mouth as directed. 4days a week Active liothyronine (CYTOMEL) 5 MCG tablet Take 10 mcg by mouth daily. Active progesterone (PROMETRIUM) 100 mg capsule Take 100 mg by mouth daily. Active therapeutic multivitamin tablet Take 1 tablet by mouth daily. Active B-complex with vitamin C tablet Take 1 tablet by mouth daily. Active tobramycin (TOBREX) 0.3 % ophthalmic solution Place 1 drop into each eye every 4 (four) hours. 5 mL 0 Active Additional Information Patient not taking.Reported on 01/28/2023 Active Problems No known active problems Encounters Date Type Department Care Team Description 04/13/2025 2:15 PM EDT Office Visit [address] [address] Richard Treviño MD Menard-John[place], Erin, PT Acute postoperative pain of right hip (Primary Dx) 03/25/2025 3:00 PM EDT Office Visit [address] [address] Richard Treviño MD Menard-Johnston, Erin, PT Acute postoperative pain of right hip (Primary Dx) 03/18/2025 3:00 PM EDT Office Visit [address] [address] Richard Treviño MD Menard-Johnston, Erin, PT Acute postoperative pain of right hip (Primary Dx) 03/11/2025 3:00 PM EDT Office Visit [address] [address] Richard Treviño MD Menard-Johnston, Erin, PT Acute postoperative pain of right hip (Primary Dx) 03/04/2025 3:00 PM EDT Office Visit [address] [address] Richard Treviño MD Menard-Johnston, Erin, PT Acute postoperative pain of right hip (Primary Dx) 02/25/2025 3:00 PM EDT Office Visit [address] [address] Richard Treviño MD Menard-Johnston, Erin, PT Acute postoperative pain of right hip (Primary Dx) 02/23/2025 3:00 PM EDT Office Visit [address] [address] Richard Treviño MD Menard-Johnston, Erin, PT Acute postoperative pain of right hip (Primary Dx) from Last 3 Months Immunizations Immunization Administration Dates Next Due Tdap 11/05/2022 Social History Tobacco Use Types Packs/Day Years Used Date Smoking Tobacco: Former Cigarettes Smokeless Tobacco: Never Tobacco Cessation:Counseling Given: Not Answered Education Answer Date Recorded Are you interested in more education? Not on boo e 10/12/2022 Are you concerned about learning? Not on file 10/12/2022 No 10/12/2022 No 10/12/2022 Digital Access Answer Date Recorded No 11/13/2022 No 11/13/2022 Reliable internet access at home? Not on file 11/13/2022 Device with a working camera? Not on file Comments Unknown Sex and Gender Information Value Date Recorded Sex Assigned at Not on file Legal Sex Female 12:20 PM EDT Gender Identity Not on file Sexual Orientation Not on file Last Filed Vital Signs Vital Sign Reading Time Taken Comments Blood Pressure 114/77 01/28/2023 2:33 PM EDT Pulse 74 01/28/2023 2:33 PM EDT Temperature 36.9 C (98.4 F) 01/28/2023 2:33 PM EDT Respiratory Rate 16 01/28/2023 2:33 PM EDT Oxygen Saturation 100% 01/28/2023 2:33 PM EDT Inhaled Oxygen Concentration - - Weight 61.7 kg (136 lb) 08/29/2019 12:37 PM EDT Height 157.5 cm (5' 2 ) 08/29/2019 12:37 PM EDT Body Mass Index 24.87 08/29/2019 12:37 PM EDT Plan of Treatment Health Maintenance Due Date Last Done Comments LIPID PANEL 1971 TSH LEVEL 1971 DEPRESSION SCREENING 1983 SMOKING Hx and SMOKELESS TOB ACCO SCREENING 1984 HEPATITIS C SCREENING 1989 HIV ONE-TIME SCREENING (18-6 5 YEARS) 1989 PAP SMEAR 1992 MAMMOGRAM 2011 COLOGUARD 2016 COLONOSCOPY 2016 COLORECTAL CANCER SCREENING 2016 FIT TEST 2016 FOBT 2016 SIGMOIDOSCOPY 2016 VIRTUAL COLONOSCOPY 2016 PNEUMOCOCCAL VACCINES (50+ y ears) (1 of 1 - PCV) 2021 ZOSTER VACCINES (1 of 2) 2021 INFLUENZA VACCINE (#1) 2025 COVID-19 VACCINE ( - 2024-2 6 season) 2025 Adult Td,Tdap Booster 11/05/2032 11/05/2022 RSV VACCINE (1 - 1-dose 75+ series) 2046 HEPATITIS A VACCINES Aged Out No long er eligible based on patient's age to complete this topic HIB VACCINES Aged Out No longer eligi ble based on patient's age to complete this topic MENINGOCOCCAL VACCINES (ACWY) Aged Out No longer eligible based on patient's age to complete this topic MENINGOCOCCAL VACCINES (B) Aged Out N o longer eligible based on patient's age to complete this topic Medical Devices Not on file Insurance ORCHARD POS ORCHARD POS ORCHARD POS ORCHARD POS ORCHARD POS ORCHARD POS Care Teams Lock Corner Machine Operator Relationship Specialty Start Date End Date Bonnie Amin MD PCP - General Internal Medicine 01/28/23 Additional Source Comments The information contained in this document represents components of the legal health record. It is not the complete legal health record.[facility]
--- OUTSIDE RECORDS SUMMARY | 2025-05-21 18:58 | XMS_ITS | Clinical Summary ---
Author Organization [facility] Address [address] [place] [address] Phone Care Team Providers Care Floor And Wall Applier Liquid Name Role Phone Bonnie Menjivar MD Primary Care Provider Allergies Active Allergy Reactions Criticality Noted Date Comments Morphine Itching Low 04/28/2003 Medications [place] Thyroid 15 mg tablet Take 1 tablet (15 mg total) by mouth 4 (four) times a week. , , sat, saturday Active [place] Thyroid 30 mg tablet Take 1 tablet (30 mg total) by mouth 4 (four) times a week. , , sat, saturday Active [place] Thyroid 60 mg tablet Take 1 tablet [...] Active Active Problems No known active problems Surgical History Surgery Date Site/Laterality Comments MASTECTOMY [...] Health Screening 12/25/2024 COVID-19 Vaccine (1 - 2024-2 6 season) 2025 Influenza Vaccine (#1) 2025 DTaP,Tdap,and [...] patient's age to complete this topic [place] [address] Care Teams Floor And Wall Applier Liquid Relationship Specialty Start Date End Date Bonnie Menjivar MD [address] [place] [phone] PCP - General Internal Medicine 01/12/25
[2025-05-21 19:30] LABS: Parathyroid Hormone Intact 100.4 pg/mL (8.7-77.1)
== END 2025-05-21 14:53 | disposition home or self-care (01) ==
LOC: HO.WFDLDS 14:52
PROVIDERS: Visit Provider Nurse Practitioner Family
DX: R79.89 Other specified abnormal findings of blood chemistry (principal)
CPT/HCPCS: 36415; 83970